=== PATIENT | female | born 1990 | race African-American/Black ===

== ENCOUNTER 2025-07-10 05:35 | Emergency (ER) | payer OTHER | END 2025-07-10 09:15 | disposition home or self-care (01) | LOC: ERS 05:35 | DX: S20.212A Contusion of left front wall of thorax, initial encounter (principal); M79.642 Pain in left hand; M54.50 Low back pain, unspecified; I10 Essential (primary) hypertension; W19.XXXA Unspecified fall, initial encounter; Z79.899 Other long term (current) drug therapy | CPT/HCPCS: 71046; 72100; 93005 ==